=== PATIENT | male | born 1975 | race American Indian/Alaskan Native ===

== ENCOUNTER 2017-09-07 09:50 | Inpatient (IN) | payer OTHER ==
[2017-09-07] MEDS ORDERED: NITRO-BID 2% TP ONE (11:29)
[2017-09-07] MEDS ORDERED: ASPIRIN PO ONE (12:00)
[2017-09-07 12:46] LABS: Basophils % (Auto) 0.3 % (0.0-1.8); Eosinophils # (Auto) 0.1 K/mm3 (0.0-0.4); Eosinophils % (Auto) 1.1 % (0.0-4.3); Hematocrit 41.8 % (35.5-45.6); Hemoglobin 13.3 gm/dl (11.8-15.2); Lymphocytes # (Auto) 1.7 K/mm3 (1.2-5.4); Lymphocytes % (Auto) 31.6 % (13.4-35.0); Mean Corpuscular HGB Conc 32 % (32-34); Monocytes # (Auto) 0.4 K/mm3 (0.0-0.8); Monocytes % (Auto) 7.8 % (0.0-7.3); Platelet Count 255 K/mm3 (140-440); Red Blood Count 6.04 M/mm3 (3.65-5.03); Red Cell Distribution Width 15.7 % (13.2-15.2)
[2017-09-07 12:51] LABS: Mean Corpuscular Hemoglobin 22 pg (28-32); Mean Corpuscular Volume 69 fl (84-94)
--- NOTE | 2017-09-07 12:58 | Emergency Department Report ---
ED Chest Pain HPI - General Chief Complaint: Chest Pain Stated Complaint: CHEST PAIN Time Seen by Provider: 09/07/17 11:08 Source: patient, EMS Mode of arrival: Stretcher Limitations: No Limitations - History of Present Illness Initial Comments: Patient with chest pain started this morning when he got out of bed doesn't believe it's worse with exertion no history of exertional chest pain here for evaluation of chest pain he also believes that he had a blackout spell at work he does not remember the blackout spell did not feel like he was given blackout here for evaluation of chest pain and syncope. He denies past medical history except he did present with elevated blood pressure with family history of elevated blood pressure. MD Complaint: chest pain, other (syncope) -: This morning Onset: during rest, during exertion, awoke with symptoms Pain Location: substernal Pain Radiation: none Severity: mild, moderate Quality: tightness, heaviness Consistency: intermittent, now resolved re: denies: nausea, vomting, diaphoresis, dyspnea Other Symptoms: denies: cough, rash, palpitations - Related Data Allergies Allergy/AdvReac Type Severity Reaction Status Date / Time No Known Allergies Allergy Unverified 09/07/17 12:00 Heart Score - HEART Score History: Moderately suspicious EKG: Non-specific Age: < 45 Risk factors: 1-2 risk factors Troponin: < normal limit HEART Score: 3 ED Review of Systems ROS: Stated complaint: CHEST PAIN Other details as noted in HPI Comment: All other systems reviewed and negative Constitutional: weakness. denies: diaphoresis, fever, malaise Respiratory: denies: orthopnea, shortness of breath, SOB with exertion, SOB at rest, stridor, wheezing Cardiovascular: chest pain, syncope. denies: palpitations, dyspnea on exertion , orthopnea Gastrointestinal: nausea. denies: abdominal pain, vomiting, constipation, hematemesis, melena, hematochezia Musculoskeletal: denies: joint swelling, arthralgia Neurological: denies: numbness, paresthesias, confusion, abnormal gait, vertigo ED Past Medical Hx - Past Medical History Previous Medical History?: No - Surgical History Past Surgical History?: No ED Physical Exam - General Limitations: No Limitations General appearance: alert, in no apparent distress - Head Head exam: Present: atraumatic, normocephalic - Eye Eye exam: Present: PERRL, EOMI - ENT ENT exam: Present: normal exam, normal orophraynx - Neck Neck exam: Present: normal inspection. Absent: tenderness, meningismus - Respiratory Respiratory exam: Present: normal lung sounds bilaterally. Absent: respiratory distress, wheezes, rales, rhonchi, stridor, chest wall tenderness, accessory muscle use, decreased breath sounds, prolonged expiratory - Cardiovascular Cardiovascular Exam: Present: regular rate, normal rhythm, normal heart sounds. Absent: rubs, gallop - GI/Abdominal GI/Abdominal exam: Present: soft. Absent: distended, tenderness, guarding, rebound, rigid, mass, bruit, pulsatile mass - Extremities Exam Extremities exam: Absent: normal capillary refill, pedal edema, joint swelling, calf tenderness - Back Exam Back exam: Present: normal inspection. Absent: CVA tenderness (L), paraspinal tenderness, vertebral tenderness - Neurological Exam Neurological exam: Present: alert, oriented X3, CN II-XII intact. Absent: motor sensory deficit ED Course Vital Signs 09/07/17 09/07/17 09/07/17 10:30 10:39 10:45 Temperature 978.1 F H Pulse Rate 84 75 Respiratory 15 Rate Blood Pressure 139/94 144/95 O2 Sat by Pulse 98 98 95 Oximetry 09/07/17 09/07/17 09/07/17 11:00 11:15 11:30 Temperature Pulse Rate 75 64 68 Respiratory 15 13 10 L Rate Blood Pressure 146/92 156/96 136/91 O2 Sat by Pulse 96 94 93 Oximetry 09/07/17 09/07/17 09/07/17 11:46 12:01 12:15 Temperature Pulse Rate 65 73 69 Respiratory 16 13 19 Rate Blood Pressure 136/91 136/63 139/82 O2 Sat by Pulse 98 96 98 Oximetry 09/07/17 09/07/17 09/07/17 12:31 12:45 13:00 Temperature Pulse Rate 67 57 L 60 Respiratory 11 L 15 14 Rate Blood Pressure 129/77 129/77 109/56 O2 Sat by Pulse 96 97 98 Oximetry 09/07/17 09/07/17 09/07/17 13:15 13:30 13:45 Temperature Pulse Rate 59 L 58 L 59 L Respiratory 15 14 14 Rate Blood Pressure 129/77 105/47 117/58 O2 Sat by Pulse 98 99 96 Oximetry 09/07/17 09/07/17 09/07/17 14:00 14:15 14:30 Temperature Pulse Rate 56 L 66 73 Respiratory 13 16 18 Rate Blood Pressure 109/61 120/73 110/65 O2 Sat by Pulse 95 92 95 Oximetry 09/07/17 09/07/17 09/07/17 14:45 16:58 17:00 Temperature Pulse Rate 77 Respiratory 17 Rate Blood Pressure 110/65 143/89 140/94 O2 Sat by Pulse 97 97 96 Oximetry 09/07/17 09/07/17 17:15 17:30 Temperature Pulse Rate 80 79 Respiratory 16 21 Rate Blood Pressure 137/81 140/83 O2 Sat by Pulse 98 97 Oximetry MIRIAM score - Miriam Score Age > 65: (0) No Aspirin use within the Past 7 Days: (0) No 3 or more CAD Risk Factors: (0) No 2 or more Angina events in past 24 hrs: (0) No Known CAD with more than 50% Stenosis: (0) No Elevated Cardiac Markers: (0) No ST Deviation Greater than 0.5mm: (0) No MIRIAM Score: 0 ED Medical Decision Making - Lab Data Result diagrams: 09/07/17 12:04 09/07/17 12:04 - EKG Data EKG shows normal: sinus rhythm - EKG Data Interpretation: nonspecific ST-T wave chastity - Radiology Data Radiology results: report reviewed - Medical Decision Making Patient with chest pain episode he did present with hypertension he apparently did have a blackout spell at work without trauma he has no C-spine tenderness no evidence of head injury however he was having chest pain with syncope with it therefore get a CTA this is unremarkable. Troponin is negative initially EKG was nondiagnostic case was discussed with Dr. Pathak will admit for further evaluation of syncope and chest pain and rule out patient for ACS Critical care attestation.: If time is entered above; I have spent that time in minutes in the direct care of this critically ill patient, excluding procedure time. ED Disposition Clinical Impression: Chest pain, Syncope Disposition: OP ADMIT IP TO THIS HOSP Is pt being admited?: Yes Condition: Stable Instructions: Chest Pain (ED), Syncope (ED) Referrals: PRIMARY CARE, [Primary Care Provider] - 3-5 Days Time of Disposition: 18:55
[2017-09-07 13:02] LABS: BUN/Creatinine Ratio 15; Blood Urea Nitrogen 12 mg/dL (9-20); Calcium 9.2 mg/dL (8.4-10.2); Hemolysis Index 18
--- NOTE | 2017-09-07 17:33 | Cat Scan Report ---
FINAL REPORT EXAM: CT ANGIO CHEST HISTORY: cp TECHNIQUE: CT examination of the chest with IV contrast CT angiographic 2D and thick slab 3D image post-processing PRIORS: None. FINDINGS: Normal cardiac size without pericardial effusion. Intact normal caliber thoracic aorta. Normal-appearing esophagus. No hilar mass or mediastinal adenopathy. The visualized pulmonary arteries are diffusely patent bilaterally. There is no filling defect to suggest PE. A smoothly marginated hypodense left hepatic lobe lesion is nonspecific and may reflect a cyst or hemangioma. A lesion in the right hepatic lobe demonstrates peripheral irregular rim enhancement more likely representing hemangioma. A nonspecific, smoothly marginated, low density left renal lesion may be a cyst. No acute fracture. No pneumothorax or pleural effusion. Slight posterior atelectasis is likely physiologic. No lung mass or pulmonary nodule. IMPRESSION: Liver lesions statistically most likely to represent hemangioma and/or cyst. No CT evidence of PE
[2017-09-07] MEDS ORDERED: TYLENOL PO ONE (18:49)
[2017-09-07] MEDS ORDERED: ZOFRAN IV PRN (23:00)
[2017-09-07] MEDS ORDERED: MORPHINE IV PRN (23:00)
[2017-09-07] MEDS ORDERED: SODIUM CHLORIDE FLUSH SYRINGE 10 ML IV PRN (23:00)
[2017-09-07] MEDS ORDERED: AMBIEN PO PRN (23:00)
[2017-09-07] MEDS ORDERED: TYLENOL PO PRN (23:00)
--- NOTE | 2017-09-07 23:00 | History and Physical Report ---
History of Present Illness Date of examination: 09/07/17 Date of admission: 09/07/17 19:46 Chief complaint: CC Passed out at work around 830 am History of present illness: History of Present Illness 41 y/o AAM brought in for passing out totally at work for a minute or two by ambulance.Patient also had some non specific chest pain in AM which he ignored.Has History of Borderline Htn but not on any meds. Chest pain is dull and not associated with any palpitations or diaphoresis.Or SOB.Passed out while standing and when he woke up EMS was at his side.Chest pain about 4/10.No exacerbating or relieving factors. Past Medical History Htn ? Surgical History Past Surgical History?: No Social hostory No Smoke/Alcohol Family history Htn Medications and Allergies Allergies Allergy/AdvReac Type Severity Reaction Status Date / Time No Known Allergies Allergy Unverified 09/07/17 12:00 Home Medications Medication Instructions Recorded Confirmed Last Taken Type No Known Home Medications [No 09/07/17 09/07/17 Unknown History Reported Home Medications] Review of Systems All systems: negative Constitutional: no weight loss, no weight gain, no fever, no chills Ears, nose, mouth and throat: no hoarseness, no sore throat Cardiovascular: chest pain, syncope, no orthopnea, no palpitations, no rapid/ irregular heart beat, no edema, no lightheadedness, no shortness of breath Respiratory: no cough, no cough with sputum, no excessive sputum, no hemoptysis , no shortness of breath, no dyspnea on exertion Gastrointestinal: no abdominal pain, no nausea, no vomiting, no diarrhea, no constipation, no change in bowel habits Genitourinary Male: no dysuria, no hematuria, no flank pain, no discharge, no urinary frequency, no urinary hesitancy Rectal: no pain Musculoskeletal: no neck stiffness, no neck pain, no shooting arm pain, no arm numbness/tingling, no low back pain, no shooting leg pain Integumentary: no rash, no pruritis, no redness, no sores, no wounds, no jaundice Neurological: syncope, no head injury, no seizures Psychiatric: no anxiety, no memory loss, no change in sleep habits, no sleep disturbances Endocrine: no cold intolerance, no heat intolerance, no polyphagia, no excessive thirst Hematologic/Lymphatic: no easy bruising, no easy bleeding Allergic/Immunologic: no urticaria, no allergic rhinitis, no wheezing Exam - Constitutional Vitals: Temp Pulse Resp BP Pulse Ox 978.1 F H 76 13 137/75 96 09/07/17 10:39 09/07/17 19:30 09/07/17 19:30 09/07/17 19:30 09/07/17 19:30 General appearance: Present: no acute distress, well-nourished - EENT Eyes: Present: PERRL ENT: hearing intact, clear oral mucosa - Neck Neck: Present: supple, normal ROM - Respiratory Respiratory effort: normal Respiratory: bilateral: CTA - Cardiovascular Heart Sounds: Present: S1 & S2. Absent: rub, click - Extremities Extremities: pulses symmetrical, No edema Peripheral Pulses: within normal limits - Abdominal General gastrointestinal: Present: soft, non-tender, non-distended, normal bowel sounds Male genitourinary: Present: normal - Integumentary Integumentary: Present: clear, warm, dry - Musculoskeletal Musculoskeletal: gait normal, strength equal bilaterally - Psychiatric Psychiatric: appropriate mood/affect, intact judgment & insight - Neurologic Neurologic: CNII-XII intact, moves all extremities - Allied Health Allied health notes reviewed: nursing, case management Results - Labs CBC & Chem 7: 09/07/17 12:04 09/07/17 12:04 Labs: Laboratory Last Values WBC 5.5 K/mm3 (4.5-11.0) 09/07/17 12:04 RBC 6.04 M/mm3 (3.65-5.03) H 09/07/17 12:04 Hgb 13.3 gm/dl (11.8-15.2) 09/07/17 12:04 Hct 41.8 % (35.5-45.6) 09/07/17 12:04 MCV 69 fl (84-94) L 09/07/17 12:04 MCH 22 pg (28-32) L 09/07/17 12:04 MCHC 32 % (32-34) 09/07/17 12:04 RDW 15.7 % (13.2-15.2) H 09/07/17 12:04 Plt Count 255 K/mm3 (140-440) 09/07/17 12:04 Lymph % (Auto) 31.6 % (13.4-35.0) 09/07/17 12:04 [place] % (Auto) 7.8 % (0.0-7.3) H 09/07/17 12:04 Eos % (Auto) 1.1 % (0.0-4.3) 09/07/17 12:04 Baso % (Auto) 0.3 % (0.0-1.8) 09/07/17 12:04 Lymph # 1.7 K/mm3 (1.2-5.4) 09/07/17 12:04 [place] # 0.4 K/mm3 (0.0-0.8) 09/07/17 12:04 Eos # 0.1 K/mm3 (0.0-0.4) 09/07/17 12:04 Baso # 0.0 K/mm3 (0.0-0.1) 09/07/17 12:04 Seg Neutrophils % 59.2 % (40.0-70.0) 09/07/17 12:04 Seg Neutrophils # 3.2 K/mm3 (1.8-7.7) 09/07/17 12:04 Sodium 139 mmol/L (137-145) 09/07/17 12:04 Potassium 4.0 mmol/L (3.6-5.0) 09/07/17 12:04 Chloride 102.1 mmol/L (98-107) 09/07/17 12:04 Carbon Dioxide 25 mmol/L (22-30) 09/07/17 12:04 Anion Gap 16 mmol/L 09/07/17 12:04 BUN 12 mg/dL (9-20) 09/07/17 12:04 Creatinine 0.8 mg/dL (0.8-1.5) 09/07/17 12:04 Estimated GFR > 60 ml/min 09/07/17 12:04 BUN/Creatinine Ratio 15 % 09/07/17 12:04 Glucose 104 mg/dL (75-100) H 09/07/17 12:04 Calcium 9.2 mg/dL (8.4-10.2) 09/07/17 12:04 Troponin T < 0.010 ng/mL (0.00-0.029) 09/07/17 19:37 - Imaging and Cardiology EKG: report reviewed (76 NSR) CT scan - chest: report reviewed (No PE) Assessment and Plan Advance Directives: Yes (Full code) VTE prophylaxis?: Chemical Plan of care discussed with patient/family: Yes - Patient Problems (1) Syncope Current Visit: Yes Status: Acute Qualifiers: Syncope type: vasovagal syncope Qualified Code(s): R55 - Syncope and collapse Plan to address problem: Syncope w/u Carotid duplex scan ECHo and Lexiscan (2) Chest pain Current Visit: Yes Status: Acute Qualifiers: Chest pain type: unspecified Qualified Code(s): R07.9 - Chest pain, unspecified Plan to address problem: Serial cardiac enzymes and Lexiscan in AM (3) HTN (hypertension) Current Visit: Yes Status: Acute Qualifiers: Hypertension type: unspecified Qualified Code(s): I10 - Essential (primary ) hypertension Plan to address problem: Borderline--Start anti hypertensive if necessary.Readings have been normal (4) Obesity Current Visit: Yes Status: Chronic Qualifiers: Obesity type: due to excess calories Body mass index: BMI 40.0-44.9 Plan to address problem: Counselled (5) DVT prophylaxis Current Visit: Yes Status: Acute Plan to address problem: OIn Heparin
[2017-09-08 05:56] LABS: Basophils # (Auto) 0.1 K/mm3 (0.0-0.1); Basophils % (Auto) 0.8 % (0.0-1.8); Eosinophils # (Auto) 0.1 K/mm3 (0.0-0.4); Eosinophils % (Auto) 2.3 % (0.0-4.3); Hematocrit 41.7 % (35.5-45.6); Hemoglobin 13.3 gm/dl (11.8-15.2); Lymphocytes # (Auto) 2.4 K/mm3 (1.2-5.4); Lymphocytes % (Auto) 37.7 % (13.4-35.0); Mean Corpuscular HGB Conc 32 % (32-34); Monocytes # (Auto) 0.6 K/mm3 (0.0-0.8); Monocytes % (Auto) 9.1 % (0.0-7.3); Platelet Count 272 K/mm3 (140-440); Red Blood Count 6.05 M/mm3 (3.65-5.03); Red Cell Distribution Width 15.7 % (13.2-15.2)
[2017-09-08 06:09] LABS: Mean Corpuscular Hemoglobin 22 pg (28-32); Mean Corpuscular Volume 69 fl (84-94)
[2017-09-08 06:26] LABS: Alanine Aminotransferase 27 units/L (7-56); Albumin 3.8 g/dL (3.9-5); BUN/Creatinine Ratio 14; Blood Urea Nitrogen 13 mg/dL (9-20); Calcium 8.9 mg/dL (8.4-10.2); Hemolysis Index 46
[2017-09-08] MEDS: PERCOCET 5/325 PO PRN ×2 (07:40→13:35)
--- NOTE | 2017-09-08 09:47 | Progress Note ---
Assessment and Plan Assessment and plan: 41 y/o AAM brought in for passing out totally at work for a minute or two by ambulance.Patient also had some non specific chest pain in AM which he ignored.Has History of Borderline Htn but not on any meds. Chest pain is dull and not associated with any palpitations or diaphoresis.Or SOB.Passed out while standing and when he woke up EMS was at his side.Chest pain about 4/10.No exacerbating or relieving factors. Hospitalist Physical - Constitutional Vitals: Temp Pulse Resp BP Pulse Ox 97.8 F 81 18 127/70 99 09/08/17 07:04 09/08/17 07:04 09/08/17 07:04 09/08/17 07:04 09/08/17 07:04 General appearance: Present: no acute distress, well-nourished Results - Labs CBC & Chem 7: 09/08/17 04:37 09/08/17 04:37 Labs: Laboratory Last Values WBC 6.3 K/mm3 (4.5-11.0) 09/08/17 04:37 RBC 6.05 M/mm3 (3.65-5.03) H 09/08/17 04:37 Hgb 13.3 gm/dl (11.8-15.2) 09/08/17 04:37 Hct 41.7 % (35.5-45.6) 09/08/17 04:37 MCV 69 fl (84-94) L 09/08/17 04:37 MCH 22 pg (28-32) L 09/08/17 04:37 MCHC 32 % (32-34) 09/08/17 04:37 RDW 15.7 % (13.2-15.2) H 09/08/17 04:37 Plt Count 272 K/mm3 (140-440) 09/08/17 04:37 Lymph % (Auto) 37.7 % (13.4-35.0) H 09/08/17 04:37 [place] % (Auto) 9.1 % (0.0-7.3) H 09/08/17 04:37 Eos % (Auto) 2.3 % (0.0-4.3) 09/08/17 04:37 Baso % (Auto) 0.8 % (0.0-1.8) 09/08/17 04:37 Lymph # 2.4 K/mm3 (1.2-5.4) 09/08/17 04:37 [place] # 0.6 K/mm3 (0.0-0.8) 09/08/17 04:37 Eos # 0.1 K/mm3 (0.0-0.4) 09/08/17 04:37 Baso # 0.1 K/mm3 (0.0-0.1) 09/08/17 04:37 Seg Neutrophils % 50.1 % (40.0-70.0) 09/08/17 04:37 Seg Neutrophils # 3.2 K/mm3 (1.8-7.7) 09/08/17 04:37 Sodium 140 mmol/L (137-145) 09/08/17 04:37 Potassium 4.1 mmol/L (3.6-5.0) 09/08/17 04:37 Chloride 100.1 mmol/L (98-107) 09/08/17 04:37 Carbon Dioxide 23 mmol/L (22-30) 09/08/17 04:37 Anion Gap 21 mmol/L 09/08/17 04:37 BUN 13 mg/dL (9-20) 09/08/17 04:37 Creatinine 0.9 mg/dL (0.8-1.5) 09/08/17 04:37 Estimated GFR > 60 ml/min 09/08/17 04:37 BUN/Creatinine Ratio 14 % 09/08/17 04:37 Glucose 111 mg/dL (75-100) H 09/08/17 04:37 Hemoglobin A1c 6.2 % (4-6) H 09/07/17 23:22 Calcium 8.9 mg/dL (8.4-10.2) 09/08/17 04:37 Total Bilirubin 0.40 mg/dL (0.1-1.2) 09/08/17 04:37 AST 18 units/L (5-40) 09/08/17 04:37 ALT 27 units/L (7-56) 09/08/17 04:37 Alkaline Phosphatase 77 units/L (35-129) 09/08/17 04:37 Troponin T < 0.010 ng/mL (0.00-0.029) 09/08/17 04:37 Total Protein 6.6 g/dL (6.3-8.2) 09/08/17 04:37 Albumin 3.8 g/dL (3.9-5) L 09/08/17 04:37 Albumin/Globulin Ratio 1.4 % 09/08/17 04:37
[2017-09-08] MEDS ORDERED: HEPARIN SUB-Q SCH (10:00)
[2017-09-08] MEDS ORDERED: SODIUM CHLORIDE FLUSH SYRINGE 10 ML IV SCH (10:00)
[2017-09-08] MEDS ORDERED: PEPCID PO SCH (10:00)
--- NOTE | 2017-09-08 12:29 | Event Note ---
Date: 09/08/17 Patient seen and examined, in no acute distress. Dizziness has improved, patient is ambulating without complaints, will await stress test and if negative patient can be discharged.
--- NOTE | 2017-09-08 15:21 | Discharge Summary ---
Providers - Providers Date of Admission: 09/07/17 19:46 Date of discharge: 09/08/17 Attending physician: ZORAIDA JOHNSON MD Primary care physician: [employer] Hospitalization Condition: Stable Pertinent studies: Carotid duplex ultrasound revealed <50% STENOSIS NOTED BILAT. BY DOPPLER DOPPLER VELOCITIES. BILAT ANTEG. VERT FLOWS Echo showed estimated EF of 50-55% with a normal left ventricular systolic function CTA chest revealed Liver lesions statistically most likely to represent hemangioma and/or cyst. No CT evidence of PE Time spent for discharge: 32 minutes Core Measure Documentation - Palliative Care Palliative Care/ Comfort Measures: Not Applicable - Core Measures Any of the following diagnoses?: none Exam - Constitutional Vitals: Temp Pulse Resp BP Pulse Ox 97.8 F 81 18 127/70 99 09/08/17 07:04 09/08/17 10:00 09/08/17 07:04 09/08/17 07:04 09/08/17 07:04 General appearance: Present: no acute distress, well-nourished - EENT Eyes: Present: PERRL ENT: hearing intact, clear oral mucosa - Neck Neck: Present: supple, normal ROM - Respiratory Respiratory effort: normal Respiratory: bilateral: CTA - Cardiovascular Heart Sounds: Present: S1 & S2. Absent: rub, click - Extremities Extremities: pulses symmetrical, No edema Peripheral Pulses: within normal limits - Abdominal General gastrointestinal: Present: soft, non-tender, non-distended, normal bowel sounds Male genitourinary: Present: normal - Integumentary Integumentary: Present: clear, warm, dry - Musculoskeletal Musculoskeletal: gait normal, strength equal bilaterally - Psychiatric Psychiatric: appropriate mood/affect, intact judgment & insight - Neurologic Neurologic: CNII-XII intact, moves all extremities Plan Diet: low fat, low cholesterol, low salt Follow up with: PRIMARY CARE, [Primary Care Provider] - 3-5 Days Pending Studies Discharge is pending negative stress test
[2017-09-08 16:26] VITALS: BP 158/97
--- NOTE | 2017-09-08 21:37 | Treadmill Report ---
INDICATION: Syncope. ORDERING PHYSICIAN: Miranda Gillis MD FINDINGS: There is no scintigraphic evidence of myocardial ischemia. The left ventricle is normal in size and systolic function. The left ventricular ejection fraction is measured at 51%. There is normal wall motion and wall thickening noted on gated imaging. CONCLUSION: 1. Normal perfusion scan. 2. This is a low risk cardiovascular study associated with a cardiovascular event risk in the next 1 year of less than 1%. JOB# [id number] VINAYAK/MARINO
== END 2017-09-08 18:38 | disposition home or self-care (01) | DRG 313 ==
LOC: ED 09:50 → 4A 19:46
PROVIDERS: ADMIT Internal Medicine; ATTEND Internal Medicine
DX: R07.89 Other chest pain (principal); R55 Syncope and collapse; E66.9 Obesity, unspecified; Z68.29 Body mass index [BMI] 29.0-29.9, adult; I10 Essential (primary) hypertension
CPT/HCPCS: 36415; 71275; 78452; 80048; 80053; 82550; 83036; 84484; 85025; 93005; 93010; 93017; 93306; 93880; A9502; J1644; Q9967

== ENCOUNTER 2017-12-09 21:33 | Emergency (ER) | payer SELFPAY ==
--- NOTE | 2017-12-09 23:38 | Emergency Department Report ---
ED Fall HPI - General Chief Complaint: Head Injury Stated Complaint: BACK/NECK/HEAD PAIN Time Seen by Provider: 12/09/17 23:23 Source: patient Mode of arrival: Ambulatory - History of Present Illness Initial Comments: This is a 42-year-old male nontoxic, well nourished in appearance, no acute signs of distress presents to the ED with c/o of acute headache, neck pain and lower back pain status post fall. 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 Patient denies any trauma to the head. Patient denies thunderclap headache. Patient describes headache as a gradual onset that with level of 8/10. Patient denies any loss of consciousness. Denies any fever, chills, nausea, vomiting, abdominal pain, chest pain, short of breath, numbness, tingling, back pain. Patient denies any allergies or significant past medical history. MD Complaint: fall -: This evening Fall From: standing When Fall Occurred: 4-6 hours [employer] Fall Witnessed: yes, by family Loss of Consciousness: none Prolonged Down Time?: no Symptoms Prior to Fall: none Severity: mild Severity scale (0 -10): 8 Quality: aching Context: tripped/slipped Associated Symptoms: headache, neck pain, other (low back pain). denies: numbness, weakness, chest paint, shortness of breath, abdominal pain, hematuria , unable to walk, lightheaded, vertigo, confusion - Related Data Previous Rx's Medication Instructions Recorded Last Taken Type Cyclobenzaprine [Flexeril] 10 mg PO QHS PRN #10 tablet 12/10/17 Unknown Rx Ibuprofen [Motrin] 600 mg PO Q8H PRN #30 tablet 12/10/17 Unknown Rx Allergies Allergy/AdvReac Type Severity Reaction Status Date / Time No Known Allergies Allergy Verified 12/09/17 21:41 ED Review of Systems ROS: Stated complaint: BACK/NECK/HEAD PAIN Other details as noted in HPI Constitutional: denies: chills, fever Eyes: denies: eye pain, eye discharge, vision change ENT: denies: ear pain, throat pain Respiratory: denies: cough, shortness of breath, wheezing Cardiovascular: denies: chest pain, palpitations Endocrine: no symptoms reported Gastrointestinal: denies: abdominal pain, nausea, diarrhea Genitourinary: denies: urgency, dysuria Musculoskeletal: back pain. denies: joint swelling, arthralgia Skin: denies: rash, lesions Neurological: headache. denies: weakness, paresthesias Psychiatric: denies: anxiety, depression Hematological/Lymphatic: denies: easy bleeding, easy bruising ED Past Medical Hx - Past Medical History Hx Congestive Heart Failure: No Hx Diabetes: No Hx Asthma: No Hx COPD: No - Surgical History Past Surgical History?: No - Social History Smoking Status: Never Smoker Substance Use Type: None - Medications Home Medications: Home Medications Medication Instructions Recorded Confirmed Last Taken Type Cyclobenzaprine [Flexeril] 10 mg PO QHS PRN #10 tablet 12/10/17 Unknown Rx Ibuprofen [Motrin] 600 mg PO Q8H PRN #30 tablet 12/10/17 Unknown Rx ED Physical Exam - General Limitations: No Limitations General appearance: alert, in no apparent distress - Head Head exam: Present: atraumatic, normocephalic - Eye Eye exam: Present: normal appearance Pupils: Present: normal accommodation - ENT ENT exam: Present: normal exam, mucous membranes moist - Neck Neck exam: Present: normal inspection, full ROM. Absent: tenderness, meningismus, lymphadenopathy - Respiratory Respiratory exam: Present: normal lung sounds bilaterally. Absent: respiratory distress, wheezes, rales, rhonchi, stridor, chest wall tenderness, accessory muscle use, decreased breath sounds, prolonged expiratory - Cardiovascular Cardiovascular Exam: Present: regular rate, normal rhythm, normal heart sounds. Absent: bradycardia, tachycardia, irregular rhythm, systolic murmur, diastolic murmur, rubs, gallop - GI/Abdominal GI/Abdominal exam: Present: soft, normal bowel sounds. Absent: distended, tenderness, guarding, rebound, rigid, diminished bowel sounds - Rectal Rectal exam: Present: deferred - Extremities Exam Extremities exam: Present: normal inspection, full ROM, normal capillary refill. Absent: tenderness, joint swelling - Back Exam Back exam: Present: normal inspection, full ROM, paraspinal tenderness ( cervical and lumbar region). Absent: tenderness, CVA tenderness (R), CVA tenderness (L), muscle spasm, vertebral tenderness, rash noted - Expanded Back Exam Expanded Back exam: Absent: saddle anesthesia Back exam: Negative Straight Leg Raising: Left, Right - Neurological Exam Neurological exam: Present: alert, oriented X3, CN II-XII intact, normal gait - Expanded Neurological Exam Expanded Patient oriented to: Present: person, place, time Cranial nerves: EOM's Intact: Normal, Gag Reflex: Normal, Facial Sensation: Normal Cerebellar function: Finger to Nose: Normal Upper motor neuron: Pronator Drift: Normal, Sensory Extinction: Normal Sensory exam: Upper Extremity Light Touch: Normal, Upper Extremity Pin Prick: Normal, Upper Extremity Temperature: Normal, UE 2 Point Discrimination: Normal, Lower Extremity Light Touch: Normal, Lower Extremity Pin Prick: Normal, Lower Extremity Temperature: Normal, LE 2 Point Discrimination: Normal Motor strength exam: RUE: 5, LUE: 5, RLE: 5, LLE: 5 Best Eye Response (Hitchcock): (4) open spontaneously Best Motor Response (Yudy): (6) obeys commands Best Verbal Response ([place]): (5) oriented Yudy Total: 15 - Psychiatric Psychiatric exam: Present: normal affect, normal mood - Skin Skin exam: Present: warm, dry, intact, normal color. Absent: rash ED Course Vital Signs 12/09/17 12/10/17 21:41 00:33 Temperature 98.4 F Pulse Rate 66 Respiratory 16 18 Rate Blood Pressure 144/83 O2 Sat by Pulse 98 Oximetry - Reevaluation(s) Reevaluation #1: 12/09/17 23:40 Patient is speaking in full sentences with no signs of distress noted. ED Medical Decision Making - Medical Decision Making This is a 42-year-old male that presents with upper and lower back strain and head contusion. Patient is stable and was examined by me. Patient is neurologically stable. There is no stiff neck or neck pain. Vital signs are stable. Patient is afebrile. CT of head, cervical, and lumbar spine obtained and dictated by the radiologist Fabiana Benton from [facility] with normal impression. Report has been faxed. Patient is notified of the CT results with no questions noted by the patient. Patient received Flexeril and Toradol which the patient stated that headache has subsided and resolved. Patient was instructed not to operate any machinery after discharged due to drowsiness of Flexeril. Patient stated that a family member () will drive patient home. Patient is discharged with Motrin and Tylenol with codeine. Patient was referred to Follow-up with a primary care/neurologist doctor in 3-5 days or if symptoms worsen and continue return to emergency room as soon as possible. At time of discharge, the patient does not seem toxic or ill in appearance. No acute signs of distress noted. Patient agrees to discharge treatment plan of care. No further questions noted by the patient. Critical care attestation.: If time is entered above; I have spent that time in minutes in the direct care of this critically ill patient, excluding procedure time. ED Disposition Clinical Impression: Head contusion Qualifiers: Encounter type: initial encounter Contusion of head detail: scalp Qualified Code(s): S00.03XA - Contusion of scalp, initial encounter Cervical muscle strain Qualifiers: Encounter type: initial encounter Qualified Code(s): S16.1XXA - Strain of muscle, fascia and tendon at neck level, initial encounter Low back strain Qualifiers: Encounter type: initial encounter Qualified Code(s): S39.012A - Strain of muscle, fascia and tendon of lower back, initial encounter Disposition: TO HOME OR SELFCARE Is pt being admited?: No Does the pt Need Aspirin: No Condition: Stable Instructions: Muscle Strain (ED), Contusion in Adults (ED), Ibuprofen (By mouth ), Cyclobenzaprine (By mouth), Acute Headache (ED) Additional Instructions: Follow-up with your primary care doctor in 3-5 days or if symptoms worsen such as bladder or bowel stability, chest pain, short of breath, numbness or tingling sensation in extremities, headache, dizziness, visual changes, nausea vomiting, or abdominal pain, return back to emergency room as was possible. Take ibuprofen and Flexeril as prescribed. Do not operate heavy machinery while taking Flexeril due to sedation Prescriptions: Cyclobenzaprine [Flexeril] 10 mg PO QHS PRN #10 tablet PRN Reason: Muscle Spasm Ibuprofen [Motrin] 600 mg PO Q8H PRN #30 tablet PRN Reason: Pain Referrals: PRIMARY CARE, [Primary Care Provider] - 3-5 Days PURA AMIN MD [Staff Physician] - 3-5 Days [facility] [Outside] - 3-5 Days [facility] [Outside] - 3-5 Days Forms: Work/School Release Form(ED)
[2017-12-09] MEDS ORDERED: FLEXERIL PO ONE (23:42)
[2017-12-09] MEDS ORDERED: TORADOL IM ONE (23:42)
[2017-12-10 01:24] VITALS: BP 140/80
--- NOTE | 2017-12-10 01:55 | Cat Scan Report ---
FINAL REPORT PROCEDURE: CT HEAD/BRAIN WO CON TECHNIQUE: Computerized tomography of the head was performed without contrast material. HISTORY: fall COMPARISON: No prior studies are available for comparison. FINDINGS: Skull and scalp: Normal. Paranasal sinuses: Normal. Ventricles and subarachnoid spaces: Normal. Cerebrum: No evidence of hemorrhage, acute infarction or mass . Cerebellum and brainstem: No evidence of hemorrhage, acute infarction or mass. Vasculature: Normal. Comments: None. IMPRESSION: Normal Examination
--- NOTE | 2017-12-10 01:55 | Cat Scan Report ---
FINAL REPORT PROCEDURE: CT CERVICAL SPINE WO CON TECHNIQUE: Computerized tomography of the cervical spine was performed from the skull base to T1 without contrast material. HISTORY: fall COMPARISON: No prior studies are available for comparison. FINDINGS: The alignment is normal. The heights of the vertebral bodies and the disc spaces are maintained. No acute fracture or dislocation of the cervical spine. The spinal canal is adequate at all levels. IMPRESSION: There is no evidence of an acute fracture or dislocation of the cervical spine..
--- NOTE | 2017-12-10 01:56 | Cat Scan Report ---
FINAL REPORT PROCEDURE: CT LUMBAR SPINE WO CON TECHNIQUE: Computerized axial tomography of the lumbar spine was performed from T12 to the sacrum without contrast material. HISTORY: fall COMPARISON: No prior studies are available for comparison. FINDINGS: L1-2: The disc is normal. No spinal canal stenosis.. L2-3: The disc is normal. No spinal canal stenosis. L3-4: The disc is normal. No spinal canal stenosis. L4-5: The disc is normal. No spinal canal stenosis. L5-S1: Mild posterior central circumferential bulging disc is identified. No spinal canal stenosis. Other: The alignment of the vertebral segments is normal. There is slight loss of disc space height at the L5-S1 level. Minimal spur formation off the vertebral bodies at the L4 and L5 vertebral levels is noted. There is a slight posterior central circumferential bulging disc at the L5-S1 level. No spinal canal stenosis is identified. There is no evidence of an acute fracture or dislocation of the lumbar spine.. IMPRESSION: Mild lumbar spondylosis and degenerative disc changes identified at the L5-S1 level. Slight posterior central circumferential bulging disc is identified. No spinal canal stenosis. No evidence of acute fracture or dislocation of the lumbar spine.
== END 2017-12-10 01:40 | disposition home or self-care (01) ==
LOC: ED 21:33
DX: S16.1XXA Strain of muscle, fascia and tendon at neck level, initial encounter (principal); S39.012A Strain of muscle, fascia and tendon of lower back, initial encounter; S00.03XA Contusion of scalp, initial encounter; W18.30XA Fall on same level, unspecified, initial encounter; Y93.89 Activity, other specified; Y99.8 Other external cause status; Y92.89 Other specified places as the place of occurrence of the external cause
CPT/HCPCS: 70450; 72125; 72131; 96372; 99283; J1885

== ENCOUNTER 2018-03-12 22:31 | Emergency (ER) | payer SELFPAY ==
[2018-03-13 00:02] VITALS: BP 144/97
--- NOTE | 2018-03-13 00:37 | XRay Report ---
FINAL REPORT EXAM: XR SPINE LUMBOSACRAL 2-3V HISTORY: Fall TECHNIQUE: Three views lumbar spine were obtained. FINDINGS: There is moderate narrowing of the L5-S1 disc with endplate spurring. The upper lumbar discs are normal height. The alignment appears normal. There is no evidence of fracture. The SI joints appear normal. The soft tissues are unremarkable. IMPRESSION: Disc degeneration at the L5-S1 level. No acute injury.
--- NOTE | 2018-03-13 00:39 | XRay Report ---
FINAL REPORT EXAM: XR HIP 2-3V RT HISTORY: Patient fell TECHNIQUE: An AP view of the pelvis was obtained along with a frogleg view of the right hip joint. FINDINGS: The right hip joint appears normal. The bony pelvic ring appears intact. The left hip and SI joints appear normal. The soft tissues reveal a phlebolith along the floor pelvis on the right side. IMPRESSION: No acute injury.
--- NOTE | 2018-03-13 07:29 | Emergency Department Report ---
ED Fall HPI - General Chief Complaint: Back Pain/Injury Stated Complaint: FALL Time Seen by Provider: 03/13/18 07:23 Source: patient, family Mode of arrival: Ambulatory - History of Present Illness Initial Comments: 42-year-old male here report that he slipped and fell at work last night and is having lower back pain, right hip pain and right hand pain. Denies any head injury or loss of consciousness. Denies any numbness or tingling to extremities. Denies any loss of bowel or bladder function. Pain is 8 out of 10 achy and worse with movement and no alleviating factors. He reports that the back of his right hand was swollen but he went down a little while he was waiting to be seen. Denies any neck pain or stiffness. MD Complaint: fall -: Last night Fall From: standing Fall Witnessed: yes, by bystander Place Fall Occurred: work Loss of Consciousness: none Prolonged Down Time?: no Symptoms Prior to Fall: none Location: back (right hip), pelvis (right hip) Location - Extremities: Right: Hand Severity: severe Severity scale (0 -10): 8 Quality: aching Context: tripped/slipped Associated Symptoms: denies: headache, neck pain, numbness, weakness, shortness of breath, abdominal pain, hematuria, unable to walk, lightheaded, vertigo, confusion - Related Data Previous Rx's Medication Instructions Recorded Last Taken Type Cyclobenzaprine [Flexeril] 10 mg PO QHS PRN #10 tablet 12/10/17 Unknown Rx Ibuprofen [Motrin] 600 mg PO Q8H PRN #30 tablet 12/10/17 Unknown Rx Cyclobenzaprine [Flexeril 10mg] 10 mg PO Q12H PRN #15 tablet 03/13/18 Unknown Rx Ibuprofen [Motrin] 800 mg PO Q8HR PRN #15 tablet 03/13/18 Unknown Rx Allergies Allergy/AdvReac Type Severity Reaction Status Date / Time [facility] Allergy Anaphylaxis Verified 03/13/18 00:03 ED Review of Systems ROS: Stated complaint: FALL Other details as noted in HPI Constitutional: denies: chills, fever Eyes: denies: eye pain, vision change ENT: denies: epistaxis Respiratory: denies: cough, shortness of breath, wheezing Cardiovascular: denies: chest pain, palpitations Gastrointestinal: denies: abdominal pain, nausea Genitourinary: denies: hematuria Musculoskeletal: back pain, arthralgia. denies: joint swelling Skin: denies: rash, lesions Neurological: denies: headache, weakness, numbness, paresthesias, abnormal gait , vertigo ED Past Medical Hx - Past Medical History Previous Medical History?: No Hx Congestive Heart Failure: No Hx Diabetes: No Hx Asthma: No Hx COPD: No - Surgical History Past Surgical History?: No - Family History Family history: hypertension - Social History Smoking Status: Never Smoker Substance Use Type: None - Medications Home Medications: Home Medications Medication Instructions Recorded Confirmed Last Taken Type Cyclobenzaprine [Flexeril] 10 mg PO QHS PRN #10 tablet 12/10/17 Unknown Rx Ibuprofen [Motrin] 600 mg PO Q8H PRN #30 tablet 12/10/17 Unknown Rx Cyclobenzaprine [Flexeril 10mg] 10 mg PO Q12H PRN #15 tablet 03/13/18 Unknown Rx Ibuprofen [Motrin] 800 mg PO Q8HR PRN #15 tablet 03/13/18 Unknown Rx ED Physical Exam - General Limitations: No Limitations General appearance: alert, in no apparent distress - Head Head exam: Present: atraumatic, normocephalic, normal inspection, other (normal exam) - Eye Eye exam: Present: normal appearance, PERRL, EOMI Pupils: Present: normal accommodation - Neck Neck exam: Present: normal inspection, full ROM, other (no C-spine tenderness). Absent: tenderness, lymphadenopathy - Respiratory Respiratory exam: Present: normal lung sounds bilaterally. Absent: respiratory distress, chest wall tenderness - Cardiovascular Cardiovascular Exam: Present: regular rate, normal rhythm, normal heart sounds - GI/Abdominal GI/Abdominal exam: Present: soft, normal bowel sounds. Absent: tenderness - Extremities Exam Extremities exam: Present: normal inspection, full ROM (patient with full range of motion to all extremities. He reports pain with range of motion to his right hip and right hand. +5 strength in all extremities), tenderness (minimal tenderness to the dorsal aspect of right hand), normal capillary refill, other ( No cce. + 2 pulses in all extremities, no neurovascular compromise except for minimal swelling to right hand dorsal aspect. No restriction in movement. Patient will good color, movement, sensation and temperature to all extremities. No joint crepitus. No joint effusion or bony abnormalities/ deformity. No motor or sensory deficit.). Absent: pedal edema, joint swelling , calf tenderness - Back Exam Back exam: Present: normal inspection, full ROM, vertebral tenderness (lumbar spine. Patient reports pain with palpation.), other (ambulates without any difficulties). Absent: tenderness, CVA tenderness (R), CVA tenderness (L), muscle spasm, paraspinal tenderness, rash noted - Expanded Back Exam Expanded Back exam: Absent: saddle anesthesia Back exam: Negative Straight Leg Raising: Left, Right - Neurological Exam Neurological exam: Present: alert, oriented X3, normal gait, reflexes normal, other (no focal neurological deficit). Absent: motor sensory deficit - Psychiatric Psychiatric exam: Present: normal affect, normal mood - Skin Skin exam: Present: warm, dry, intact, normal color. Absent: rash ED Course Vital Signs 03/12/18 23:55 Temperature 98.7 F Pulse Rate 70 Respiratory 12 Rate Blood Pressure 144/97 O2 Sat by Pulse 99 Oximetry - Reevaluation(s) Reevaluation #1: 03/13/18 08:29 Patient received [place] 10/3351 mg by mouth and Flexeril 10 mg by mouth emergency room. Pain has been relieved. ED Medical Decision Making - Radiology Data Radiology results: report reviewed X-ray to the three-view lumbar spine, x-ray 2-3 field right hip, x-ray 3 views right hand dictated radiologist report reviewed by myself. Please see below for details Patient: DIAZ AVILES MR#: [id number] : 1975 Acct:[id number] Age/Sex: 42 / M ADM Date: 03/12/18 Loc: ED Attending Dr: Ordering Physician: ZENA JEREZ MD Date of Service: 03/13/18 Procedure(s): XR spine lumbosacral 2-3V Accession Number(s): [id number] cc: ZENA JEREZ MD Fluoro Time In Minutes: FINAL REPORT EXAM: XR SPINE LUMBOSACRAL 2-3V HISTORY: Fall TECHNIQUE: Three views lumbar spine were obtained. FINDINGS: There is moderate narrowing of the L5-S1 disc with endplate spurring. The upper lumbar discs are normal height. The alignment appears normal. There is no evidence of fracture. The SI joints appear normal. The soft tissues are unremarkable. IMPRESSION: Disc degeneration at the L5-S1 level. No acute injury. Transcribed By: RB Dictated By: LORRIE WARD MD Electronically Authenticated By: LORRIE WARD MD Signed Date/Time: 03/13/1835 DD/ TD/TT: 03/13/1835 Patient: DIAZ AVILES MR#: [id number] : 1975 Acct:[id number] Age/Sex: 42 / M ADM Date: 03/12/18 Loc: ED Attending Dr: Ordering Physician: ZENA JEREZ MD Date of Service: 03/13/18 Procedure(s): XR hip 2-3V RT Accession Number(s): [id number] cc: ZENA JEREZ MD Fluoro Time In Minutes: FINAL REPORT EXAM: XR HIP 2-3V RT HISTORY: Patient fell TECHNIQUE: An AP view of the pelvis was obtained along with a frogleg view of the right hip joint. FINDINGS: The right hip joint appears normal. The bony pelvic ring appears intact. The left hip and SI joints appear normal. The soft tissues reveal a phlebolith along the floor pelvis on the right side. IMPRESSION: No acute injury. Transcribed By: RB Dictated By: LORRIE WARD MD Electronically Authenticated By: LORRIE WARD MD Signed Date/Time: 03/13/1836 Patient: DIAZ AVILES MR#: [id number] : 1975 Acct:[id number] Age/Sex: 42 / M ADM Date: 03/12/18 Loc: ED Attending Dr: Ordering Physician: NED SALINAS Date of Service: 03/13/18 Procedure(s): XR hand 3+V RT Accession Number(s): [id number] cc: NED SALINAS Fluoro Time In Minutes: FINAL REPORT EXAM: XR HAND 3+V RT HISTORY: fall with right hand pain COMPARISONS: None. FINDINGS: Three views right hand No bone lesion, periosteal reaction, or fracture. No deformity or gross malalignment. IMPRESSION: No right hand fracture or gross malalignment. Transcribed By: MB Dictated By: RASHEEDA COLEMAN MD Electronically Authenticated By: RASHEEDA COLEMAN MD Signed Date/Time: 03/13/18804 DD/ 4 TD/TT: 03/13/18804 DD/ TD/TT: 03/13/1836 - Medical Decision Making This is a 42-year-old male here report that she slipped and fell at work last night. Patient reports that he was trying to break his fall and landed on his right hand. He is complaining of right hip pain, right hand pain which she report was swollen but the swelling in went down while he was waiting. He is also complaining of lower back pain. Diagnostics: X-ray of right hand, right hip and lumbar spine dictated by radiologist and reported to myself and negative finding except for degenerative changes to L5-S1. Please see full report for detailed Assessment/plan 1: Lower back pain status post accidental fall 2: Arthralgia multiple sites 3: Contusion right hand Medication given in emergency room for above assessment: Motrin 800 mg and Flexeril 10 mg by mouth for pain and pain has been relieved. Referral to orthopedic doctor for low back pain and arthralgia. Referred to primary care doctor to follow up as needed. I discussed the patient as diagnosis, treatment plan, medication and needs to follow-up with referrals into to 3 days and he voiced understanding. Patient discharged home in stable condition. I explained Rice protocol to him. Rest encourage for 3 days. Discharged home with family in stable condition with prescription for Motrin and Flexeril. - Differential Diagnosis FX, dislocation, subluxation, sprain, strain, arthritis, MSK pain Critical care attestation.: If time is entered above; I have spent that time in minutes in the direct care of this critically ill patient, excluding procedure time. ED Disposition Clinical Impression: Arthralgia of multiple sites Accidental fall Qualifiers: Encounter type: initial encounter Qualified Code(s): W19.XXXA - Unspecified fall, initial encounter Lower back pain Qualifiers: Chronicity: acute Back pain laterality: midline Sciatica presence: without sciatica Qualified Code(s): M54.5 - Low back pain Contusion of right hand Qualifiers: Encounter type: initial encounter Qualified Code(s): S60.221A - Contusion of right hand, initial encounter Disposition: - TO HOME OR SELFCARE Is pt being admited?: No Does the pt Need Aspirin: No Condition: Stable Instructions: Contusion in Adults (ED), Fall Prevention (ED), Arthralgia (ED), RICE Therapy (ED), Acute Low Back Pain (ED) Additional Instructions: See discharge instruction in Rice therapy Follow up with orthopedic doctor in 2-3 days Follow up Primary care physician in 2 days Take Motrin for pain and Flexeril for pain but please make sure you take these medications with food as they can cause irritation to stomach lining. These do not drive or operate heavy machinery while taking Flexeril as this medication causes drowsiness. If his symptoms worsen, return to the emergency room Referrals: PRIMARY CAREMD [Primary Care Provider] - 2-3 Days LORRIE MARTIN MD [Staff Physician] - 2-3 Days [facility] [Outside] - 2-3 Days Forms: Work/School Release Form(ED)
[2018-03-13] MEDS ORDERED: FLEXERIL PO ONE (07:30)
[2018-03-13] MEDS ORDERED: NORCO 5/325 PO ONE (07:30)
--- NOTE | 2018-03-13 08:07 | XRay Report ---
FINAL REPORT EXAM: XR HAND 3+V RT HISTORY: fall with right hand pain COMPARISONS: None. FINDINGS: Three views right hand No bone lesion, periosteal reaction, or fracture. No deformity or gross malalignment. IMPRESSION: No right hand fracture or gross malalignment.
== END 2018-03-13 08:46 | disposition home or self-care (01) ==
LOC: ED 22:31
DX: S60.221A Contusion of right hand, initial encounter (principal); M54.5 Low back pain; M25.551 Pain in right hip; Z91.09 Other allergy status, other than to drugs and biological substances; W01.0XXA Fall on same level from slipping, tripping and stumbling without subsequent striking against object, initial encounter; Y93.89 Activity, other specified; Y99.0 Civilian activity done for income or pay; Y92.69 Other specified industrial and construction area as the place of occurrence of the external cause
CPT/HCPCS: 72100; 99283

== ENCOUNTER 2018-03-19 17:04 | Inpatient (IN) | payer SELFPAY ==
[2018-03-19] MEDS ORDERED: KEPPRA 1,000 MG/NS 0.75% 100ML 1,000 MG/100 ML BAG IV ONE (17:42)
[2018-03-19] MEDS ORDERED: FIORICET PO ONE (17:46)
--- NOTE | 2018-03-19 17:48 | Emergency Department Report ---
HPI - General Chief Complaint: Seizure Time Seen by Provider: 03/19/18 17:32 - HPI HPI: Room 18 The patient is a 42-year-old male presenting with a chief complaint of seizure. The patient states today he was told he had a seizure. The patient's fianc states the patient was walking from one room to the other when she heard him fall. She came in to find the patient having a generalized tonic-clonic seizure. The patient states is amnestic to the event and only remembers walking down the hallway. The patient states his next memory is with EMS helping him on the stretcher. Patient now complains of a mild headache and dizziness. Of note the patient states he slipped and fell at work 03/12/2018 striking the back of his head and hurting his right hand. Patient denied loss of consciousness during that episode but states he has had a headache since Location: [facility] Duration: [See above] Quality: Generalized tonic-clonic Severity: Moderate Modifying factors: [see above] Context: [see above] Mode of transportation: [not driving] ED Past Medical Hx - Past Medical History Previous Medical History?: No - Surgical History Past Surgical History?: No - Family History Family history: other (seizures) - Social History Smoking Status: Never Smoker Substance Use Type: None (denies illicit drug use) - Medications Home Medications: Home Medications Medication Instructions Recorded Confirmed Last Taken Type Cyclobenzaprine [Flexeril] 10 mg PO QHS PRN #10 tablet 12/10/17 Unknown Rx Ibuprofen [Motrin] 600 mg PO Q8H PRN #30 tablet 12/10/17 Unknown Rx Cyclobenzaprine [Flexeril 10mg] 10 mg PO Q12H PRN #15 tablet 03/13/18 Unknown Rx Ibuprofen [Motrin] 800 mg PO Q8HR PRN #15 tablet 03/13/18 Unknown Rx ED Review of Systems ROS: Stated complaint: CONVULSIONS Other details as noted in HPI Constitutional: no symptoms reported Eyes: denies: eye pain ENT: denies: throat pain Respiratory: no symptoms reported Cardiovascular: denies: chest pain Endocrine: no symptoms reported Gastrointestinal: denies: abdominal pain Genitourinary: denies: dysuria Musculoskeletal: myalgia Neurological: headache, other (dizziness, seizure) Physical Exam - Physical Exam Vital Signs: Vital Signs 03/19/18 17:26 Temperature 98.7 F Pulse Rate 88 Respiratory 18 Rate Blood Pressure 148/110 O2 Sat by Pulse 98 Oximetry Physical Exam: GENERAL: The patient is well-developed well-nourished male lying on stretcher not appearing to be in acute distress. [] HEENT: Normocephalic. Atraumatic. Extraocular motions are intact. Patient has moist mucous membranes. NECK: Supple. Trachea midline CHEST/LUNGS: Clear to auscultation. There is no respiratory distress noted. HEART/CARDIOVASCULAR: Regular. There is no tachycardia. There is no gallop rub or murmur. ABDOMEN: Abdomen is soft, nontender. Patient has normal bowel sounds. There is no abdominal distention. SKIN: There is no rash. There is no edema. There is no diaphoresis. NEURO: The patient is awake, alert, and oriented. The patient is cooperative. The patient has no focal neurologic deficits. The patient has normal speech. Cranial nerves II through XII grossly intact, no drift MUSCULOSKELETAL: There is soreness to the dorsum of the right hand. No obvious deformity. There is no tenderness in the anatomic snuffbox on the right. There is no evidence of acute injury. ED Course Vital Signs 03/19/18 17:26 Temperature 98.7 F Pulse Rate 88 Respiratory 18 Rate Blood Pressure 148/110 O2 Sat by Pulse 98 Oximetry - Reevaluation(s) Reevaluation #1: 03/19/18 19:50 Patient states his dizziness is worsened since being in the ED. Will admit the patient to the hospital for further evaluation ED Medical Decision Making - Lab Data Result diagrams: 03/19/18 18:01 03/19/18 18:01 Laboratory Tests 03/19/18 03/19/18 03/19/18 18:01 18:01 18:01 WBC 5.7 RBC 5.65 H Hgb 12.3 Hct 39.2 MCV 69 L MCH 22 L MCHC 31 L RDW 16.2 H Plt Count 263 Lymph % (Auto) 31.0 [place] % (Auto) 8.8 H Eos % (Auto) 1.4 Baso % (Auto) 0.4 Lymph # 1.8 [place] # 0.5 Eos # 0.1 Baso # 0.0 Seg Neutrophils % 58.4 Seg Neutrophils # 3.3 Sodium 140 Potassium 3.5 L Chloride 102.7 Carbon Dioxide 27 Anion Gap 14 BUN 12 Creatinine 1.0 Estimated GFR > 60 BUN/Creatinine Ratio 12 Glucose 88 Calcium 9.5 Magnesium 1.80 Plasma/Serum Alcohol < 0.01 - Radiology Data Radiology results: report reviewed (CT head), image reviewed (CT head, right hand x-ray) interpreted by me: Right hand x-ray-no acute fracture [facility] [address] [place] [address] Cat Scan Report Signed Patient: DIAZ AVILES MR#: [id number] : Acct:[id number] Age/Sex: 42 / M ADM Date: 03/19/18 Loc: ED Attending Dr: Ordering Physician: VALERIE CELESTE MD Date of Service: 03/19/18 Procedure(s): CT head/brain wo con Accession Number(s): [id number] cc: VALERIE CELESTE MD FINAL REPORT PROCEDURE: CT head without contrast. TECHNIQUE: Computerized tomography of the head was performed without contrast material. HISTORY: Seizure. COMPARISON: CT head 12/09/2017. FINDINGS: The ventricles are normal in size. The rojas matter and white matter appear normal. There are no mass lesions. There is no intracranial hemorrhage. The calvarium appears intact. The mastoid air cells and paranasal sinuses are clear. IMPRESSION: Normal study. Transcribed By: MRM Dictated By: RASHEEDA MAYEN MD Electronically Authenticated By: RASHEEDA MAYEN MD Signed Date/Time: 03/19/181837 DD/DT : 03/19/181837 TD/TT: 03/19/181837 - Differential Diagnosis closed head injury, epilepsy, Critical care attestation.: If time is entered above; I have spent that time in minutes in the direct care of this critically ill patient, excluding procedure time. ED Disposition Clinical Impression: Seizure Disposition: OP ADMIT IP TO THIS HOSP Is pt being admited?: Yes Does the pt Need Aspirin: No Condition: Fair Time of Disposition: 19:51 (hospitalist notified (Dr. Dominguez))
[2018-03-19 18:15] LABS: Basophils % (Auto) 0.4 % (0.0-1.8); Eosinophils # (Auto) 0.1 K/mm3 (0.0-0.4); Eosinophils % (Auto) 1.4 % (0.0-4.3); Hematocrit 39.2 % (35.5-45.6); Hemoglobin 12.3 gm/dl (11.8-15.2); Lymphocytes # (Auto) 1.8 K/mm3 (1.2-5.4); Mean Corpuscular HGB Conc 31 % (32-34); Monocytes # (Auto) 0.5 K/mm3 (0.0-0.8); Monocytes % (Auto) 8.8 % (0.0-7.3); Platelet Count 263 K/mm3 (140-440); Red Blood Count 5.65 M/mm3 (3.65-5.03); Red Cell Distribution Width 16.2 % (13.2-15.2)
[2018-03-19 18:18] LABS: Mean Corpuscular Hemoglobin 22 pg (28-32); Mean Corpuscular Volume 69 fl (84-94)
[2018-03-19 18:35] LABS: BUN/Creatinine Ratio 12; Blood Urea Nitrogen 12 mg/dL (9-20); Calcium 9.5 mg/dL (8.4-10.2); Hemolysis Index 3
--- NOTE | 2018-03-19 18:39 | Cat Scan Report ---
FINAL REPORT PROCEDURE: CT head without contrast. TECHNIQUE: Computerized tomography of the head was performed without contrast material. HISTORY: Seizure. COMPARISON: CT head 12/09/2017. FINDINGS: The ventricles are normal in size. The rojas matter and white matter appear normal. There are no mass lesions. There is no intracranial hemorrhage. The calvarium appears intact. The mastoid air cells and paranasal sinuses are clear. IMPRESSION: Normal study.
[2018-03-19] MEDS ORDERED: ATIVAN ONE (18:55)
[2018-03-19 21:34] LABS: Amphetamine Screen,Urine PRESUMPTIVE NEGATIVE; Benzodiazepines Screen,Urine PRESUMPTIVE NEGATIVE; Cannabinoid Screen,Urine PRESUMPTIVE NEGATIVE; Cocaine Screen,Urine PRESUMPTIVE NEGATIVE; Methadone Screen,Urine PRESUMPTIVE NEGATIVE; Opiate Screen,Urine PRESUMPTIVE NEGATIVE
--- NOTE | 2018-03-19 21:37 | XRay Report ---
FINAL REPORT PROCEDURE: Right hand. TECHNIQUE: Three views. HISTORY: Pain after fall. COMPARISON: Right hand 03/13/2018. FINDINGS: The bones appear intact without fracture or dislocation. The joint spaces appear normal. The soft tissues are unremarkable. IMPRESSION: Normal study.
[2018-03-19] MEDS ORDERED: ZOFRAN IV PRN (22:50)
[2018-03-19] MEDS ORDERED: TYLENOL PO PRN (22:50)
[2018-03-19] MEDS ORDERED: SODIUM CHLORIDE FLUSH SYRINGE 10 ML IV PRN (22:50)
[2018-03-19] MEDS ORDERED: NORCO 5/325 PO PRN (22:50)
--- NOTE | 2018-03-19 23:10 | History and Physical Report ---
History of Present Illness Date of examination: 03/19/18 Date of admission: 03/19/18 Chief complaint: I passed out History of present illness: Patient is a 42 year old -[place] male with no known past medical history who presented to the ED on account of syncope. The patient stated that while he was getting ready for work, he suddenly passed out hitting his head on the floor. He had associated seizure activity as reported by his girlfriend who witnessed the incident. He stated that he woke up after the incident and saw the paramedics putting him onto a stretcher. He has positive history of headaches and dizziness. He denies fever, chills, nausea, vomiting, chest pain , shortness of breath, palpitation, diaphoresis, cough or leg swelling. No abdominal pain, constipation, diarrhea, dysuria or frequency. Patient reported a recent fall at work during which he hit his head on the floor without any loss of consciousness. No prior history of presenting complaint. Past History Past Medical History: No medical history Past Surgical History: No surgical history Social history: no significant social history (patient denies tobacco, alcohol or illicit drug use) Family history: other (significant for seizure in multiple family members) Medications and Allergies Allergies Allergy/AdvReac Type Severity Reaction Status Date / Time [facility] Allergy Anaphylaxis Verified 03/13/18 00:03 Home Medications Medication Instructions Recorded Confirmed Last Taken Type Cyclobenzaprine [Flexeril] 10 mg PO QHS PRN #10 tablet 12/10/17 Unknown Rx Ibuprofen [Motrin] 600 mg PO Q8H PRN #30 tablet 12/10/17 Unknown Rx Cyclobenzaprine [Flexeril 10mg] 10 mg PO Q12H PRN #15 tablet 03/13/18 Unknown Rx Ibuprofen [Motrin] 800 mg PO Q8HR PRN #15 tablet 03/13/18 Unknown Rx Active Meds: Active Medications Acetaminophen (Tylenol) 650 mg PO Q4H PRN PRN Reason: Pain MILD(1-3)/Fever >100.5/MURRAY Acetaminophen/Hydrocodone Bitart ([place] 5/325) 1 each PO Q6H PRN PRN Reason: Pain, Moderate (4-6) Ondansetron HCl (Zofran) 4 mg IV Q8H PRN PRN Reason: Nausea And Vomiting Sodium Chloride (Sodium Chloride Flush Syringe 10 Ml) 10 ml IV BID TOREY Sodium Chloride (Sodium Chloride Flush Syringe 10 Ml) 10 ml IV PRN PRN PRN Reason: LINE FLUSH Review of Systems All systems: negative (except as documented in the HPI, all other systems were reviewed and negative) Exam - Constitutional Vitals: Temp Pulse Resp BP Pulse Ox 98.7 F 58 L 16 142/83 98 03/19/18 17:26 03/19/18 20:30 03/19/18 20:30 03/19/18 20:30 03/19/18 20:30 General appearance: Present: no acute distress, well-nourished - EENT Eyes: Present: PERRL, EOM intact ENT: hearing intact, clear oral mucosa - Neck Neck: Present: supple, normal ROM - Respiratory Respiratory effort: normal Respiratory: bilateral: CTA - Cardiovascular Rhythm: other (bradycardia with regular rhythm) Heart Sounds: Present: S1 & S2. Absent: rub, click - Extremities Extremities: pulses symmetrical, No edema Peripheral Pulses: within normal limits - Abdominal General gastrointestinal: Present: soft, non-tender, non-distended, normal bowel sounds - Integumentary Integumentary: Present: clear, warm, dry - Musculoskeletal Musculoskeletal: gait normal, strength equal bilaterally - Psychiatric Psychiatric: appropriate mood/affect, intact judgment & insight - Neurologic Neurologic: CNII-XII intact, moves all extremities Results - Labs CBC & Chem 7: 03/19/18 18:01 03/19/18 18:01 Labs: Laboratory Last Values WBC 5.7 K/mm3 (4.5-11.0) 03/19/18 18: RBC 5.65 M/mm3 (3.65-5.03) H 03/19/18 18:01 Hgb 12.3 gm/dl (11.8-15.2) 03/19/18 18: Hct 39.2 % (35.5-45.6) 03/19/18 18: MCV 69 fl (84-94) L 03/19/18 18:01 MCH 22 pg (28-32) L 03/19/18 18:01 MCHC 31 % (32-34) L 03/19/18 18:01 RDW 16.2 % (13.2-15.2) H 03/19/18 18: Plt Count 263 K/mm3 (140-440) 03/19/18 18:01 Lymph % (Auto) 31.0 % (13.4-35.0) 03/19/18 18:01 [place] % (Auto) 8.8 % (0.0-7.3) H 03/19/18 18:01 Eos % (Auto) 1.4 % (0.0-4.3) 03/19/18 18:01 Baso % (Auto) 0.4 % (0.0-1.8) 03/19/18 18: Lymph # 1.8 K/mm3 (1.2-5.4) 03/19/18 18:01 [place] # 0.5 K/mm3 (0.0-0.8) 03/19/18 18: Eos # 0.1 K/mm3 (0.0-0.4) 03/19/18 18:01 Baso # 0.0 K/mm3 (0.0-0.1) 03/19/18 18: Seg Neutrophils % 58.4 % (40.0-70.0) 03/19/18 18: Seg Neutrophils # 3.3 K/mm3 (1.8-7.7) 03/19/18 18:01 Sodium 140 mmol/L (137-145) 03/19/18 18:01 Potassium 3.5 mmol/L (3.6-5.0) L 03/19/18 18: Chloride 102.7 mmol/L (98-107) 03/19/18 18: Carbon Dioxide 27 mmol/L (22-30) 03/19/18 18: Anion Gap 14 mmol/L 03/19/18 18: BUN 12 mg/dL (9-20) 03/19/18 18: Creatinine 1.0 mg/dL (0.8-1.5) 03/19/18 18: Estimated GFR > 60 ml/min 03/19/18 18: BUN/Creatinine Ratio 12 % 03/19/18 18: Glucose 88 mg/dL (75-100) 03/19/18 18: Calcium 9.5 mg/dL (8.4-10.2) 03/19/18 18: Magnesium 1.80 mg/dL (1.7-2.3) 09/22/18 18:01 Urine Opiates Screen Presumptive negative 03/19/18 20:50 Urine Methadone Screen Presumptive negative 03/19/18 20:50 Ur Barbiturates Screen Presumptive positive 03/19/18 20:50 Ur Phencyclidine Scrn Presumptive negative 03/19/18 20:50 Ur Amphetamines Screen Presumptive negative 03/19/18 20:50 U Benzodiazepines Scrn Presumptive negative 03/19/18 20:50 Urine Cocaine Screen Presumptive negative 03/19/18 20:50 U Marijuana (THC) Screen Presumptive negative 03/19/18 20:50 Drugs of Abuse Note Disclamer 03/19/18 20:50 Plasma/Serum Alcohol < 0.01 % (0-0.07) 03/19/18 18:01 Assessment and Plan Assessment and plan: New onset seizure -Patient received IV Keppra in the ED -He will be placed on when necessary Ativan and seizure precautions -We will consult the neurology Syncope and collapse, probably related to the seizure -CT head is neg Sinus bradycardia, probably chronic -Patient reported being athletic -He will be monitored on telemetry -Will order echocardiogram Mild hypokalemia -We will replete potassium and monitor level Prophylaxis -DVT prophylaxis with SCD Time spent: 35 minutes Disposition: Discharge will depend on clinical course
[2018-03-19] MEDS ORDERED: ATIVAN IV PRN (23:26)
[2018-03-19] MEDS: K-DUR PO SCH (23:54)
[2018-03-20] MEDS ORDERED: APRESOLINE IV PRN (02:46)
[2018-03-20 07:41] LABS: Alanine Aminotransferase 21 units/L (7-56); BUN/Creatinine Ratio 13; Blood Urea Nitrogen 13 mg/dL (9-20); Calcium 9.2 mg/dL (8.4-10.2); Hemolysis Index 4
[2018-03-20] MEDS: K-DUR PO SCH (09:11)
[2018-03-20] MEDS: SODIUM CHLORIDE FLUSH SYRINGE 10 ML IV SCH ×2 (09:11→21:47)
--- NOTE | 2018-03-20 10:15 | Progress Note ---
Subjective Date of service: 03/20/18 Interval history: patient seen and spoke to family the patient has negative neuro exam at this point... there is strong family hx of epilepsy will get w/u agree with management plan at this time full note dictated Objective - Vital Sign Vital Signs - 12hr 03/19/18 03/19/18 03/19/18 22:16 22:30 22:46 Temperature Pulse Rate 46 L 50 L 66 Respiratory 17 13 13 Rate Blood Pressure 127/83 119/75 119/75 Blood Pressure [Right] O2 Sat by Pulse 94 96 99 Oximetry 03/19/18 03/19/18 03/19/18 23:00 23:16 23:30 Temperature Pulse Rate 53 L 47 L 54 L Respiratory 17 17 15 Rate Blood Pressure 119/75 136/82 110/68 Blood Pressure [Right] O2 Sat by Pulse 98 97 97 Oximetry 03/19/18 03/19/18 03/20/18 23:40 23:50 00:00 Temperature Pulse Rate 48 L 49 L 70 Respiratory 17 13 13 Rate Blood Pressure 147/93 119/68 119/68 Blood Pressure [Right] O2 Sat by Pulse 98 100 98 Oximetry 03/20/18 03/20/18 03/20/18 00:10 00:18 00:24 Temperature Pulse Rate 51 L 50 L 51 L Respiratory 13 16 14 Rate Blood Pressure 119/68 110/68 Blood Pressure 124/44 [Right] O2 Sat by Pulse 99 97 98 Oximetry 03/20/18 03/20/18 03/20/18 00:31 00:41 00:51 Temperature Pulse Rate 52 L 49 L 52 L Respiratory 14 17 14 Rate Blood Pressure 65/36 124/44 117/36 Blood Pressure [Right] O2 Sat by Pulse 100 99 98 Oximetry 03/20/18 03/20/18 03/20/18 01:00 01:11 01:21 Temperature Pulse Rate 50 L 108 H 56 L Respiratory 17 13 18 Rate Blood Pressure 130/56 65/36 136/64 Blood Pressure [Right] O2 Sat by Pulse 96 94 98 Oximetry 03/20/18 03/20/18 03/20/18 01:31 02:38 04:01 Temperature Pulse Rate 58 L 56 L Respiratory 20 16 Rate Blood Pressure 95/40 151/86 Blood Pressure [Right] O2 Sat by Pulse 98 100 Oximetry 03/20/18 03/20/18 04:26 06:14 Temperature 98.3 F 97.9 F Pulse Rate 57 L 57 L Respiratory 20 18 Rate Blood Pressure 139/81 125/67 Blood Pressure [Right] O2 Sat by Pulse 97 98 Oximetry - Laboratory Findings CBC and BMP: 03/19/18 18:01 03/20/18 06:32 Abnormal Lab Findings: Abnormal Labs 03/19/18 03/19/18 03/20/18 18:01 18:01 06:32 RBC 5.65 H MCV 69 L MCH 22 L MCHC 31 L RDW 16.2 H [place] % (Auto) 8.8 H Potassium 3.5 L Glucose 120 H
--- NOTE | 2018-03-20 11:12 | Progress Note ---
Assessment and Plan New onset seizure -Patient received IV Keppra in the ED -He is on when necessary Ativan and seizure precautions -Consulted neurology, MRI/EEG pending Syncope and collapse, probably related to the seizure -CT head is neg Sinus bradycardia, probably chronic -Patient reported being athletic -He will be monitored on telemetry -Will follow 2d echocardiogram Mild hypokalemia -repleted and monitor level Prophylaxis -DVT prophylaxis with SCD Subjective Date of service: 03/20/18 Interval history: No acute event O/n Family at bedside, updated No further seizure like activity Objective - Constitutional Vitals: Vital Signs - 12hr 03/19/18 03/19/18 03/19/18 23:16 23:30 23:40 Temperature Pulse Rate 47 L 54 L 48 L Respiratory 17 15 17 Rate Blood Pressure 136/82 110/68 147/93 Blood Pressure [Right] O2 Sat by Pulse 97 97 98 Oximetry 03/19/18 03/20/18 03/20/18 23:50 00:00 00:10 Temperature Pulse Rate 49 L 70 51 L Respiratory 13 13 13 Rate Blood Pressure 119/68 119/68 119/68 Blood Pressure [Right] O2 Sat by Pulse 100 98 99 Oximetry 03/20/18 03/20/18 03/20/18 00:18 00:24 00:31 Temperature Pulse Rate 50 L 51 L 52 L Respiratory 16 14 14 Rate Blood Pressure 110/68 65/36 Blood Pressure 124/44 [Right] O2 Sat by Pulse 97 98 100 Oximetry 03/20/18 03/20/18 03/20/18 00:41 00:51 01:00 Temperature Pulse Rate 49 L 52 L 50 L Respiratory 17 14 17 Rate Blood Pressure 124/44 117/36 130/56 Blood Pressure [Right] O2 Sat by Pulse 99 98 96 Oximetry 03/20/18 03/20/18 03/20/18 01:11 01:21 01:31 Temperature Pulse Rate 108 H 56 L 58 L Respiratory 13 18 20 Rate Blood Pressure 65/36 136/64 95/40 Blood Pressure [Right] O2 Sat by Pulse 94 98 98 Oximetry 03/20/18 03/20/18 03/20/18 02:38 04:01 04:26 Temperature 98.3 F Pulse Rate 56 L 57 L Respiratory 16 20 Rate Blood Pressure 151/86 139/81 Blood Pressure [Right] O2 Sat by Pulse 100 97 Oximetry 03/20/18 06:14 Temperature 97.9 F Pulse Rate 57 L Respiratory 18 Rate Blood Pressure 125/67 Blood Pressure [Right] O2 Sat by Pulse 98 Oximetry General appearance: Present: no acute distress, well-nourished - EENT Eyes: PERRL, EOM intact ENT: hearing intact, clear oral mucosa Ears: bilateral: normal - Neck Neck: supple, normal ROM - Respiratory Respiratory effort: normal Respiratory: bilateral: CTA - Cardiovascular Rhythm: regular Heart Sounds: Present: S1 & S2. Absent: gallop, rub Extremities: pulses intact, No edema, normal color, Full ROM - Gastrointestinal General gastrointestinal: Present: soft, non-tender, non-distended, normal bowel sounds - Integumentary Integumentary: clear, warm, dry - Musculoskeletal Musculoskeletal: 1, strength equal bilaterally - Neurologic Neurologic: moves all extremities - Psychiatric Psychiatric: memory intact, appropriate mood/affect, intact judgment & insight - Labs CBC & Chem 7: 03/19/18 18:01 03/20/18 06:32 Labs: Abnormal lab results 03/19/18 03/19/18 03/20/18 Range/Units 18:01 18:01 06:32 RBC 5.65 H (3.65-5.03) M/mm3 MCV 69 L (84-94) fl MCH 22 L (28-32) pg MCHC 31 L (32-34) % RDW 16.2 H (13.2-15.2) % [place] % (Auto) 8.8 H (0.0-7.3) % Potassium 3.5 L (3.6-5.0) mmol/L Glucose 120 H (75-100) mg/dL - Imaging and cardiology Chest x-ray: report reviewed (no infiltrates) CT Scan - head: report reviewed (no acute process)
--- NOTE | 2018-03-20 16:48 | Consultation ---
HISTORY OF PRESENT ILLNESS: This is a 42-year-old black male, who presents to [facility] with a new onset of seizure. Apparently, he was dressing, going to work, had taken shower, was apparently slightly dizzy, not feeling like himself when he suffered a fall that was witnessed by his to have a generalized seizure. There is a history that he might have slipped and hit the back of his head at work on 03/12/2008, and hurt his right hand, but he denied any loss of consciousness during that episode. He takes no medications except Flexeril, ibuprofen, and Motrin. Laboratory was unremarkable in the past. He denies any history of diabetes or hypertension. Previously, his potassium is slightly low in the Emergency Room at 3.5. His glucose was 88. His sodium was 140. His hematocrit is 39.2. The patient had a CT scan of the head, which was unremarkable. I have personally reviewed this and I would agree it does not show any acute abnormalities. PHYSICAL EXAMINATION: VITAL SIGNS: On my examination of the patient, his current blood pressure is 151/86, pulse rate is 80, respirations 18. NECK: Supple. NEUROLOGIC: Cranial nerves II through XII are intact. Speech clear. Affect appropriate. No drift to extremities is present. No tremors or asterixis. No focal seizure activity is noted. Visual pa are full. Recognizes . Speech is good. Memory intact. He does have a very slight recollection of the episode in question. He states that he felt slightly dizzy and off balance immediately prior to the onset of the syncopal episode. He is aware that he has no memory for the episode except when he regained consciousness in the Emergency Room at [facility]. IMPRESSION: 1. Generalized seizure. 2. Recent history of a fall with very minimal injury to the right arm, was treated with Flexeril and Motrin, which I do not think would be a precipitating any problem at this point as these do not trigger epilepsy. He does have a family history of epilepsy, which is grand mal, apparently his mother is in the medical field, but she is not presently in the room to obtain a more detailed history from her. I think I would like to speak with her at some point about her previous recollections. I did speak with his and will plan on getting an EEG and MRI. [facility]# [id number] TOYA/MARINO
[2018-03-21] MEDS: K-DUR PO SCH (10:41)
[2018-03-21] MEDS: SODIUM CHLORIDE FLUSH SYRINGE 10 ML IV SCH (10:44)
--- NOTE | 2018-03-21 12:09 | Magnetic Resonance Report ---
MRI OF THE BRAIN WITHOUT CONTRAST: HISTORY: Seizure PROCEDURE: Multiplanar, multisequence MR imaging of the brain without IV contrast was performed. FINDINGS: Compared to the CT head dated 03/19/18. The brain parenchyma signal intensity and its mcneal white interface are within normal limits on all sequences. No evidence for acute ischemia, hemorrhage or mass. No chronic infarct or extra-axial fluid collection. The midline structures are central. The basal cisterns are patent. Normal ventricular size. The orbital cavities and sella turcica demonstrate no abnormality. The visualized paranasal sinuses and mastoid air cells are well aerated. IMPRESSION: Unremarkable non-enhanced MRI of the brain.
[2018-03-21 13:26] VITALS: BP 154/80
--- NOTE | 2018-03-21 14:41 | Consultation ---
History of Present Illness Consult date: 03/21/18 Requesting physician: SUKUMAR FENG Consult reason: bradycardia History of present illness: The pt is a 42 YO male with no significant past medical history. He presented for evaluation following a suspected seizure. He states that on 03/12/2018, he was at work when he slipped on a wet floor and fell onto his back and hit the back of his head. He states that this fall was purely mechanical and denies any cardiac symptoms surrounding the fall. On Wednesday, he was getting dressed for work in his bathroom when he lost consciousness. He states that his girlfriend was in the bedroom when she heard him fall and hit the floor. She rushed into the bathroom and witnessed him unconscious and "jerking" and then called EMS. The pt then remembers being at home on the floor with paramedics standing over him. He denies any chest pain, palpitations, n/v, diaphoresis or dizziness surrounding this episode. Since admission, he has been in sinus bradycardia and thus cardiology has been consulted. Review of ECG and telemetry reveals sinus bradycardia, HR mostly 40s during sleep and 60s during daytime hours. Echo done 03/19/2018 showed EF 50-55%, mild MS. Past History Past Medical History: No medical history Past Surgical History: No surgical history Social history: no significant social history (patient denies tobacco, alcohol or illicit drug use) Family history: other (significant for seizure in multiple family members) Medications and Allergies Allergies Allergy/AdvReac Type Severity Reaction Status Date / Time [facility] Allergy Anaphylaxis Verified 03/13/18 00:03 Home Medications Medication Instructions Recorded Confirmed Last Taken Type Ibuprofen [Motrin] 600 mg PO Q8H PRN #30 tablet 12/10/17 03/20/18 Unknown Rx Cyclobenzaprine [Flexeril 10mg] 10 mg PO Q12H PRN #15 tablet 03/13/18 03/20/18 Unknown Rx Active Meds: Active Medications Acetaminophen (Tylenol) 650 mg PO Q4H PRN PRN Reason: Pain MILD(1-3)/Fever >100.5/MURRAY Last Admin: 03/20/18 21:47 Dose: 650 mg Acetaminophen/Hydrocodone Bitart ([place] 5/325) 1 each PO Q6H PRN PRN Reason: Pain, Moderate (4-6) Hydralazine HCl (Apresoline) 10 mg IV Q6H PRN PRN Reason: Hypertension Lorazepam (Ativan) 2 mg IV Q4H PRN PRN Reason: Seizures Ondansetron HCl (Zofran) 4 mg IV Q8H PRN PRN Reason: Nausea And Vomiting Potassium Chloride (K-Dur) 40 meq PO DAILY [facility] Stop: 03/21/18 23:25 Last Admin: 03/21/18 10:41 Dose: 40 meq Sodium Chloride (Sodium Chloride Flush Syringe 10 Ml) 10 ml IV BID [facility] Last Admin: 03/21/18 10:44 Dose: 10 ml Sodium Chloride (Sodium Chloride Flush Syringe 10 Ml) 10 ml IV PRN PRN PRN Reason: LINE FLUSH Review of Systems Constitutional: no weight loss, no weight gain, no fever, no chills, no sweats Ears, nose, mouth and throat: no ear pain, no nose pain, no sinus pressure, no sinus pain Cardiovascular: syncope, no chest pain, no orthopnea, no palpitations, no rapid/ irregular heart beat, no edema, no lightheadedness, no shortness of breath, no dyspnea on exertion, no high blood pressure Respiratory: no cough, no shortness of breath, no dyspnea on exertion, no congestion, no wheezing, no pain on inspiration Gastrointestinal: no abdominal pain, no nausea, no vomiting, no diarrhea, no constipation, no change in bowel habits Genitourinary Male: no dysuria, no hematuria, no flank pain, no discharge, no urinary frequency, no urinary hesitancy Musculoskeletal: no neck stiffness, no neck pain Integumentary: no rash, no pruritis, no redness, no sores, no wounds Neurological: seizures, syncope, no paralysis, no weakness, no parathesias, no numbness, no tingling Psychiatric: no anxiety Endocrine: no cold intolerance, no heat intolerance Hematologic/Lymphatic: no easy bruising, no easy bleeding Allergic/Immunologic: no urticaria, no wheezing Physical Examination Vital Signs Temp Pulse Resp BP Pulse Ox 98.7 F 88 18 148/110 98 03/19/18 17:26 03/19/18 17:26 03/19/18 17:26 03/19/18 17:26 03/19/18 17:26 General appearance: no acute distress HEENT: Positive: PERRL, Normocephaly, Mucus Membranes Moist Neck: Positive: neck supple, trachea midline Cardiac: Positive: Regular Rhythm, S1/S2 Lungs: Positive: clear to auscultation Neuro: Positive: Grossly Intact Abdomen: Positive: Soft. Negative: Tender Skin: Positive: Clear. Negative: Rash, Wound Musculoskeletal: No Fluid Collection, No Pain, Normal Range of Motion Extremities: Absent: edema Results 03/19/18 18:01 03/20/18 06:32 - Imaging and Cardiology Echo: report reviewed (03/19/2018: EF 50-55%, mild MS) EKG: report reviewed, image reviewed EKG interpretations - Telemetry EKG Rhythm: Sinus Bradycardia - EKG Sinus rhythms and dysrhythmias: sinus rhythm Assessment and Plan Obtain thyroid profile. Currently stable cardiac status. Pending thyroid profile is WNL, pt may discharge home from cardiology standpoint. If symptoms reoccur, can consider Holter study as outpatient. Recommend follow up in our office with Dr. Bonilla within 2 weeks of hospital discharge ([phone]). Follow neuro recs. The patient has been seen in conjunction with Dr. Bonilla who agrees with the assessment and plan of care. - Patient Problems (1) Seizure Current Visit: Yes Status: Acute (2) Syncope Current Visit: Yes Status: Acute Qualifiers: Syncope type: vasovagal syncope Qualified Code(s): R55 - Syncope and collapse (3) Sinus bradycardia Current Visit: Yes Status: Acute
--- NOTE | 2018-03-21 16:49 | Discharge Summary ---
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 CT brain: Normal study. 2D Echo: Ef normal 50-55% Hospital course: Discharge Diagnosis: New onset seizure -Patient received IV Keppra in the ED -He is on when necessary Ativan and seizure precautions -Consulted neurology, MRI brain was unremarkable Syncope and collapse, - Probably related to the seizure - CT/MRI BRAIN is neg. Sinus bradycardia, probably chronic - Patient reported being athletic - He will be monitored on telemetry - Normal EF on 2d echocardiogram Mild hypokalemia -repleted and monitor level Prophylaxis -DVT prophylaxis with SCD Disposition: DC- TO HOME OR SELFCARE Time spent for discharge: 32 minutes Core Measure Documentation - Palliative Care Palliative Care/ Comfort Measures: Not Applicable - Core Measures Any of the following diagnoses?: none Exam - Physical Exam Narrative exam: General appearance: Present: no acute distress, well-nourished - EENT Eyes: PERRL, EOM intact ENT: hearing intact, clear oral mucosa Ears: bilateral: normal - Neck Neck: supple, normal ROM - Respiratory Respiratory effort: normal Respiratory: bilateral: CTA - Cardiovascular Rhythm: regular Heart Sounds: Present: S1 & S2. Absent: gallop, rub Extremities: pulses intact, No edema, normal color, Full ROM - Gastrointestinal General gastrointestinal: Present: soft, non-tender, non-distended, normal bowel sounds - Integumentary Integumentary: clear, warm, dry - Musculoskeletal Musculoskeletal: 1, strength equal bilaterally - Neurologic Neurologic: moves all extremities - Psychiatric Psychiatric: memory intact, appropriate mood/affect, intact judgment & insight - Constitutional Vitals: Temp Pulse Resp BP Pulse Ox 98.2 F 63 18 154/80 94 03/21/18 12:39 03/21/18 12:39 03/21/18 12:39 03/21/18 12:39 03/21/18 12:39 Plan Activity: advance as tolerated Weight Bearing Status: Weight Bear as Tolerated Diet: regular Follow up with: PRIMARY CARE, [Primary Care Provider] - 7 Days
== END 2018-03-21 17:59 | disposition home or self-care (01) | DRG 101 ==
LOC: ED 17:04 → 3A 22:50
PROVIDERS: ADMIT Internal Medicine; ATTEND Internal Medicine
DX: G40.89 Other seizures (principal); E87.6 Hypokalemia; R00.1 Bradycardia, unspecified; W18.39XA Other fall on same level, initial encounter; Y93.01 Activity, walking, marching and hiking; Y92.098 Other place in other non-institutional residence as the place of occurrence of the external cause; Z91.018 Allergy to other foods; Y99.8 Other external cause status; Z82.0 Family history of epilepsy and other diseases of the nervous system
CPT/HCPCS: 36415; 70450; 70551; 80048; 80053; 80307; 80320; 83735; 84100; 84439; 84443; 85025; 87116; 93005; 93010; 93306; G0480; J1953; J2060

== ENCOUNTER 2018-11-19 10:55 | Emergency (ER) | payer SELFPAY ==
[2018-11-19 11:02] VITALS: BP 135/90
[2018-11-19 11:23] LABS: Hemoglobin 13.6 gm/dl (11.8-15.2); Mean Corpuscular HGB Conc 32 % (32-34); Platelet Count 300 K/mm3 (140-440); Red Blood Count 6.04 M/mm3 (3.65-5.03); Red Cell Distribution Width 15.9 % (13.2-15.2)
[2018-11-19 11:27] LABS: Mean Corpuscular Volume 70 fl (84-94)
[2018-11-19 11:52] LABS: BUN/Creatinine Ratio 10; Blood Urea Nitrogen 12 mg/dL (9-20); Calcium 9.2 mg/dL (8.4-10.2); Hemolysis Index 1
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
== END 2018-11-19 12:22 | disposition home or self-care (01) ==
LOC: ED 10:55
DX: R55 Syncope and collapse (principal); I10 Essential (primary) hypertension; Z91.018 Allergy to other foods
CPT/HCPCS: 36415; 80048; 82962; 85027; 93005; 93010

== ENCOUNTER 2018-12-22 13:28 | Emergency (ER) | payer SELFPAY ==
[2018-12-22 14:17] VITALS: BP 155/95
--- NOTE | 2018-12-22 14:17 | Emergency Department Report ---
Blank Doc - Documentation Documentation: 43 y o male presents with wrist and hand pain this am states this morning fingers locked up on him
[2018-12-22] MEDS ORDERED: NORCO 5/325 PO ONE (14:34)
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
--- NOTE | 2018-12-22 15:03 | XRay Report ---
RIGHT WRIST, 3 VIEWS: History: Pain, deformity. A mildly displaced distal radial fracture is identified which extends to the radiocarpal joint. The carpal bones are in appropriate relationship. The visualized metacarpals are intact. The distal ulna is intact. Small ossicle distal to the ulnar styloid is noted. There is diffuse soft tissue swelling. IMPRESSION: Distal radial fracture as described.
--- NOTE | 2018-12-22 16:14 | Event Note ---
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
== END 2018-12-22 16:17 | disposition home or self-care (01) ==
LOC: ED 13:28
DX: S52.501A Unspecified fracture of the lower end of right radius, initial encounter for closed fracture (principal); Z91.018 Allergy to other foods; X58.XXXA Exposure to other specified factors, initial encounter; Y93.89 Activity, other specified; Y92.89 Other specified places as the place of occurrence of the external cause; Y99.8 Other external cause status